=== PATIENT | female | born 1955 | race Caucasian/White ===

== ENCOUNTER 2020-07-06 22:02 | Emergency (ER) | payer BC ==
--- NOTE | 2020-07-07 02:34 | ER ---
Nurse's Notes [facility] Name: Anuja Obrien Age: 65 yrs Sex: Female : 1955 Arrival Date: 07/06/2020 Time: 23:20 Bed Waiting Private MD: Diagnosis: Presentation: 07/06 23:20 Chief complaint: Patient states: bear back pain through buttocks and legs, started at 5 iw pm, also has chills and headache, denies urine s/s or n/v/d, does not feel like arthritis or sciatica. Coronavirus screen: At this time, the client does not indicate any symptoms associated with coronavirus-19. Ebola Screen: Patient negative for fever greater than or equal to 101.5 degrees Fahrenheit, and additional compatible Ebola Virus Disease symptoms Patient denies exposure to infectious person. Patient denies travel to an Ebola-affected area in the 21 days before illness onset. No symptoms or risks identified at this time. Initial Sepsis Screen: Does the patient meet any 2 criteria? No. Patient's initial sepsis screen is negative. Does the patient have a suspected source of infection? No. Patient's initial sepsis screen is negative. Risk Assessment: Do you want to hurt yourself or someone else? Patient reports no desire to harm self or others. Onset of symptoms was July 06, 2020. 23:20 Method Of Arrival: Ambulatory iw 23:20 Acuity: KAYLEY 3 iw Historical: - Allergies: 23:22 Codeine; nausea; iw - Home Meds: 23:22 Paxil Oral [Active]; Lamictal Oral [Active]; iw - PSHx: 23:22 wrist; iw - Immunization history:: Adult Immunizations not up to date. - Social history:: Smoking status: Patient reports the use of cigarette tobacco products, smokes one pack cigarettes per day. Vital Signs: 07/07 00:18 BP 142 / 91; Pulse 79; Resp 16; Temp 98; Pulse Ox 99% ; Weight 45.36 kg; Height 5 ft. 2 iw in. (157.48 cm); 00:18 Body Mass Index 18.29 (45.36 kg, 157.48 cm) iw ED Course: 07/06 23:20 Patient arrived in ED. iw 23:21 Triage completed. iw 23:22 Arm band placed on. iw Administered Medications: No medications were administered Outcome: 07/07 02:33 Patient left the ED. iw Signatures: Laurie Padilla, RN RN iw
[2020-07-07 02:50] VITALS: BP 142/91; TEMP 98; O2SAT 99
== END 2020-07-07 02:33 | disposition left against medical advice (07) ==
LOC: ER 22:02
DX: Z53.21 Procedure and treatment not carried out due to patient leaving prior to being seen by health care provider (principal)
CPT/HCPCS: 99281